=== PATIENT | female | born 1970 | race Caucasian/White ===

== ENCOUNTER 2016-04-18 10:37 | Emergency (ER) | payer SELFPAY ==
[2016-04-18] MEDS ORDERED: ONDANSETRON 4 MG TAB.RAPDIS PO ONE (10:44)
--- NOTE | 2016-04-18 10:49 | ER Document Report ---
ED Medical Screen (RME) - General Stated Complaint: WEAKNESS Time seen by provider: 10:43 Mode of Arrival: Ambulatory Information source: Patient - HPI Patient complains to provider of: VOMITING, DIARRHEA Onset: Yesterday Onset/Duration: Sudden Quality of pain: Cramping, Sharp Severity: Severe Pain Level: 5 Associated Symptoms: Abdominal pain, Chills, Diarrhea, Headache, Nausea, Vomiting Exacerbated by: Denies Relieved by: Denies Similar symptoms previously: No Recently seen / treated by doctor: No Notes: 04/18/16 10:47 PT IS AN ALCOHOLIC AND STARTED DRINKING AGAIN ABOUT 4 MONTHS AGO. LAST ALCOHOL WAS SUNDAY AND WAS EXCESSIVE. - Related Data Smoking: Cigarettes Frequency of alcohol use: Heavy Drug Abuse: None Allergies/Adverse Reactions: No Known Allergies Allergy (Verified 04/18/16 10:43) Past Medical History Past Surgical History: Reports: Hx Orthopedic Surgery - left knee, Hx Tubal Ligation - Immunizations Hx Diphtheria, Pertussis, Tetanus Vaccination: No - unknown Physical Exam - Vital signs Vitals: Temp Pulse Resp BP Pulse Ox 98.4 F 65 18 149/93 H 99 04/18/16 10:41 04/18/16 10:41 04/18/16 10:41 04/18/16 10:41 04/18/16 10:41 Course - Vital Signs Vital signs: Temp Pulse Resp BP Pulse Ox 98.4 F 65 18 149/93 H 99 04/18/16 10:41 04/18/16 10:41 04/18/16 10:41 04/18/16 10:41 04/18/16 10:41
[2016-04-18] MEDS: NORMAL SALINE 1000 ML 1,000 ML IV PRN ×2 (11:17→11:48)
--- NOTE | 2016-04-18 11:17 | ER Document Report ---
ED GI/ <RADHA JARVIS - Last Filed: 04/18/16 13:08> - General Time seen by provider: 11:12 Mode of Arrival: Ambulatory Information source: Patient TRAVEL OUTSIDE OF THE [place] IN LAST 30 DAYS: No - HPI Patient complains to provider of: Abdominal pain, Vomiting Onset: Other - sunday Timing/Duration: Persistent Quality of pain: Burning, Sharp Severity at maximum: Severe Severity in ED: Severe Pain Level: 5 Location: Other - upper abdominal Vaginal bleeding (Compared to normal period): None Associated symptoms: Nausea, Vomiting Exacerbated by: Supine, Sitting, Standing, Movement, Food Relieved by: Denies Similar symptoms previously: Yes Recently seen / treated by doctor: No <DANIAL HINTON - Last Filed: 04/18/16 20:20> - General Chief Complaint: Nausea/Vomiting/Diarrhea Stated Complaint: WEAKNESS Notes: 45-year-old female presents to ED for nausea vomiting and not able to keep any fluids down since Sunday. She states that she has been drinking off and on for since November almost daily and Sunday and Sunday between the 2 days she drank 40 50 mL bottles of Bacardi rum and now she cannot keep anything down. She states she's having severe upper abdomen pain since Sunday. (DANIAL HINTON) - Related Data Allergies/Adverse Reactions: No Known Allergies Allergy (Verified 04/18/16 10:43) Past Medical History - General Information source: Patient - Social History Smoking Status: Current Every Day Smoker Chew tobacco use (# tins/day): Yes Frequency of alcohol use: Heavy Drug Abuse: None Lives with: Family - Daughter Family History: Reviewed & Not Pertinent Patient has suicidal ideation: No - Past Medical History Cardiac Medical History: Reports: None Pulmonary Medical History: Reports: None EENT Medical History: Reports: None Neurological Medical History: Reports: Hx Migraine Endocrine Medical History: Reports: None Renal/ Medical History: Reports: None Malignancy Medical History: Reports: None GI Medical History: Reports: None Musculoskeltal Medical History: Reports Hx Musculoskeletal Deformity, Reports Hx Musculoskeletal Trauma Skin Medical History: Reports None Psychiatric Medical History: Reports: None Traumatic Medical History: Reports: None Infectious Medical History: Reports: None Past Surgical History: Reports: Hx Orthopedic Surgery - left knee, Hx Tubal Ligation - Immunizations Hx Diphtheria, Pertussis, Tetanus Vaccination: No - unknown <DANIAL HINTON - Last Filed: 04/18/16 20:20> Review of Systems - Review of Systems Constitutional: No symptoms reported EENT: No symptoms reported Cardiovascular: No symptoms reported Respiratory: No symptoms reported Gastrointestinal: Abdominal pain, Nausea, Vomiting Genitourinary: No symptoms reported Female Genitourinary: No symptoms reported Musculoskeletal: No symptoms reported Skin: No symptoms reported Hematologic/Lymphatic: No symptoms reported Neurological/Psychological: Anxiety -: Yes All other systems reviewed and negative <DANIAL HINTON - Last Filed: 04/18/16 20:20> Physical Exam - Vital signs Interpretation: Normal - General General appearance: Appears well, Alert - HEENT Head: Normocephalic, Atraumatic Eyes: Normal Pupils: PERRL - Respiratory Respiratory status: No respiratory distress Chest status: Nontender Breath sounds: Normal Chest palpation: Normal - Cardiovascular Rhythm: Regular Heart sounds: Normal auscultation Murmur: No - Abdominal Inspection: Normal Distension: No distension Bowel sounds: Normal Tenderness: Tender - Generalized abdominal pain worse to the upper abdomen Organomegaly: No organomegaly - Back Back: Normal, Nontender - Extremities General upper extremity: Normal inspection, Nontender, Normal color, Normal ROM , Normal temperature General lower extremity: Normal inspection, Nontender, Normal color, Normal ROM , Normal temperature, Normal weight bearing. No: Lacie's sign - Neurological Neuro grossly intact: Yes Cognition: Normal Orientation: AAOx4 [place] Coma Scale Eye Opening: Spontaneous [place] Coma Scale Verbal: Oriented [place] Coma Scale Motor: Obeys Commands [place] Coma Scale Total: 15 Speech: Normal Motor strength normal: LUE, RUE, LLE, RLE Sensory: Normal - Psychological Associated symptoms: Normal affect, Normal mood - Skin Skin Temperature: Warm Skin Moisture: Dry Skin Color: Normal <DANIAL HINTON - Last Filed: 04/18/16 20:20> - Vital signs Vitals: Temp Pulse Resp BP Pulse Ox 98.4 F 65 18 149/93 H 99 04/18/16 10:41 04/18/16 10:41 04/18/16 10:41 04/18/16 10:41 04/18/16 10:41 (RADHA JARVIS) (DANIAL HINTON) Course - Laboratory Result Diagrams: 04/18/16 11:43 04/18/16 11:43 <RADHA JARVIS - Last Filed: 04/18/16 13:08> - Laboratory Result Diagrams: 04/18/16 11:43 04/18/16 11:43 <DANIAL HINTON - Last Filed: 04/18/16 20:20> - Re-evaluation Re-evalutation: 04/18/16 13:08 Asked to see patient at the bedside with APC tachycardia. Patient is upset that she is not receiving Ativan. Her blood alcohol is 0 she is not hypertensive or tachycardic she is not into acute withdrawal. She is not actively vomiting at the bedside is well-appearing nontoxic. At this time she does not meet criteria for medical admission explained to her we're uncomfortable writing a prescription for Ativan given the fact that she will likely drink again in the combination of the 2 medications together could lead to detrimental overdose and respiratory depression. We offer her an opportunity to speak to the behavioral health people to help set up some outpatient referral service for drug and alcohol treatment. Patient does not have a ride in the next half hour therefore cannot give her a dose of Ativan here. We'll discharge follow-up as directed and discussed reasons for ED return sooner (RADHA JARVIS) - Vital Signs Vital signs: Temp Pulse Resp BP Pulse Ox 98.4 F 73 18 152/88 H 97 04/18/16 10:41 04/18/16 14:48 04/18/16 10:41 04/18/16 14:48 04/18/16 14:48 (RAHDA JARVIS) (DANIAL HINTON) - Laboratory Laboratory results interpreted by me: 04/18/16 04/18/16 04/18/16 11:43 11:43 13:40 MCV 102 H MCH 35.3 H RDW 16.0 H Potassium 3.2 L BUN 5 L Total Bilirubin 2.2 H AST 85 H Total Protein 6.2 L Amylase < 30 L Urine Protein 30 H Urine Ketones TRACE H (RADHA JARVIS) Discharge <RADHA JARVIS - Last Filed: 04/18/16 13:08> <DANIAL HINTON - Last Filed: 04/18/16 20:20> - Discharge Clinical Impression: Alcohol abuse, Upper abdominal pain Nausea and vomiting Qualifiers: Vomiting type: unspecified Vomiting Intractability: non-intractable Qualified Code(s): R11.2 - Nausea with vomiting, unspecified Condition: Stable Disposition: HOME, SELF-CARE Instructions: Family Physicians / Practices, Chronic Alcoholism ([facility]) Additional Instructions: ABDOMINAL PAIN: There are many causes of abdominal pain. Pain can mean a serious problem requiring surgery (such as appendicitis). It can also be an innocent problem that goes away on its own (such as a viral infection). Often, time must pass to determine the cause of pain. The physician does not feel that hospitalization is necessary, at present. Things may change within the next 24 hours. Call the doctor or come back for re- examination if any problems occur, such as: (1) Pain that becomes more severe, steady, or becomes concentrated in one specific area. Also, pain that is more severe with movement or coughing. (2) Vomiting that persists or becomes more frequent. (3) Blood in the vomitus, urine, or bowel movements. Blood in the stool may have a tarry or black appearance. (4) Shaking chills or fever greater than 100 degrees F. (5) The abdomen becomes more distended or swollen. (6) Bowel movements cease. (7) Failure to improve as expected. VOMITING: Vomiting (or nausea without vomiting) can be caused by many other different problems. It can mean that something's wrong with the stomach, such as ulcers or inflammation or the intestinal tract, such as appendicitis. But it can also be a symptom of a problem that has nothing to do with the stomach or intestines. Vomiting is common with severe headaches, earaches, tonsillitis, and kidney infections, etc. We see it with pneumonia or heart attacks. Drugs can cause nausea and vomiting. Many abdominal problems cause vomiting; for example, gallstones, kidney stones, pancreatitis, and intestinal obstruction ( blocked bowels). In most cases, curing the vomiting depends on fixing the problem that caused it. For temporary relief, we may use an anti-nausea medicine. For home use, we can prescribe suppositories, chewable pills, pills that dissolve in the mouth, or liquid anti-nausea drugs. If the vomiting seems to be caused by a problem in the stomach, acid-suppressing drugs may be prescribed as well. It's important to avoid dehydration. Sip small amounts of clear liquids ( soft drinks, tea, broth, etc) . Try to take fluids frequently even if you are vomiting to prevent dehydration. Take increasing amounts of fluid and when liquids are being consumed successfully, advance to small amounts of bland food (toast, soups, mashed potatoes, etc.) until you are able to resume a regular diet. Avoid aspirin, tobacco, and alcohol. If the vomiting worsens, if the problem that's making you vomit worsens, or if there's evidence of bleeding in the stomach (such as black, tarry stool, or bloody or black vomit), you should return immediately. Also, return if abdominal pain worsens or becomes localized to one area or you develop high fever. Call your doctor if you aren't improved in 24 hours. INTRAVENOUS (I V) FLUIDS: As part of your care today, you received intravenous (IV) fluids. IV fluids are administered to patients who are dehydrated or to those who have certain chemical (electrolyte) abnormalities that need correcting [place] MEDICATION: You have been given a medication to suppress nausea and vomiting. This type of medication can be given as a shot, pill, or suppository. It will usually last for many hours. Pills and shots usually last six to eight hours. For the typical illness, only one or two doses of the medication may be necessary. Mild lightheadedness may occur. This type of medicine can cause drowsiness. Do not drive or operate dangerous machinery while under its influence. Do not mix with alcohol. See your doctor at once if you have muscle spasms or tightness, or uncontrollable motions (particularly of the neck, mouth, or jaw). Persistent vomiting or severe lightheadedness should also be evaluated by the physician. Benzodiazepines please do not drink any alcohol at all to day You have been given a benzodiazepine medication. Examples of this type of medicine include Valium, Xanax, Librium, Ativan, and Halcion. Benzodiazepines have many uses. Medications of this type are used for insomnia, anxiety, muscle spasms, seizures, and drug and alcohol withdrawal. You may become very drowsy when you first take the medication. You should not drive or operate machinery while under its effects. Do not combine the medication with alcohol, or with any other medication without talking to your doctor. Do not take if without specific instruction from your inventory associate. Some benzodiazepines may have harmful interactions with oral antifungal medicines such as ketoconazole, itraconazole, and nefazodone. If you are taking an antifungal medicine, discuss this with your doctor before taking benzodiazepines. FOLLOW-UP CARE: If you have been referred to a physician for follow-up care, call the physician s office for an appointment as you were instructed or within the next two days. If you experience worsening or a significant change in your symptoms, notify the physician immediately or return to the Emergency Department at any time for re-evaluation. Forms: Elevated Blood Pressure, Smoking Cessation Education
[2016-04-18 11:53] LABS: ABSOLUTE MONOCYTES (AUTO) 0.4 10^3/uL (0.1-1.4); ABSOLUTE NEUT (AUTO) 3.4 10^3/uL (1.7-8.2); BASOPHILS % (AUTO) 0.6 % (0-2); EOSINOPHILS % (AUTO) 0.2 % (0-6); HEMATOCRIT 39.8 % (36.0-47.0); HEMOGLOBIN 13.8 g/dL (12.0-15.5); HGB HCT DIFFERENCE 1.6; LYMPHOCYTES % (AUTO) 19.9 % (13-45); MEAN CORPUSCULAR HEMOGLOBIN 35.3 pg (27.0-33.4); MEAN CORPUSCULAR HGB CONC 34.6 g/dL (32.0-36.0); MEAN CORPUSCULAR VOLUME 102 fl (80-97); MONOCYTES % (AUTO) 8.8 % (3-13); SEGMENTED NEUTROPHILS % (AUTO) 70.5 % (42-78); WHITE BLOOD COUNT 4.8 10^3/uL (4.0-10.5)
[2016-04-18 12:12] LABS: ALANINE AMINOTRANSFERASE 47 U/L (9-52); ALBUMIN 3.5 g/dL (3.5-5.0); ALKALINE PHOSPHATASE 94 U/L (38-126); ANION GAP 9 (5-19); ASPARTATE AMINO TRANSFERASE 85 U/L (14-36); BILIRUBIN,TOTAL 2.2 mg/dL (0.2-1.3); BLOOD UREA NITROGEN 5 mg/dL (7-20); CALCIUM 8.4 mg/dL (8.4-10.2); CARBON DIOXIDE 30 mmol/L (22-30); CHLORIDE 101 mmol/L (98-107); CREATININE RESULT 0.63 mg/dL (0.52-1.25); GLUCOSE 107 mg/dL (75-110); LIPASE 38.5 U/L (23-300); POTASSIUM 3.2 mmol/L (3.6-5.0); TOTAL PROTEIN 6.2 g/dL (6.3-8.2)
[2016-04-18 12:13] LABS: ALCOHOL < 10 mg/dL (NONE DETECTED); AMYLASE < 30 U/L (30-110)
[2016-04-18] MEDS ORDERED: ONDANSETRON HCL INJ/PF 4 MG/2 ML SDV IV ONE (13:09)
[2016-04-18 14:01] LABS: APPEARANCE,URINE SLIGHTLY-CLOUDY; BILIRUBIN,URINE NEGATIVE (NEGATIVE); GLUCOSE, URINE NEGATIVE (NEGATIVE); KETONES,URINE TRACE mg/dL (NEGATIVE); LEUKOCYTE ESTERASE,URINE NEGATIVE (NEGATIVE); NITRITE,URINE NEGATIVE (NEGATIVE); PROTEIN,URINE 30 mg/dL (NEGATIVE); UROBILINOGEN,URINE NEGATIVE mg/dL (<2.0)
[2016-04-18] MEDS ORDERED: LORAZEPAM 0.5 MG TABLET PO ONE (14:03)
[2016-04-18 14:18] LABS: URINE METHADONE SCREEN NEGATIVE; URINE OPIATES LOW NEGATIVE; URINE PHENCYCLIDINE SCREEN NEGATIVE
[2016-04-18 14:31] LABS: URINE BARBITURATES SCREEN NEGATIVE
[2016-04-18 14:49] VITALS: BP 152/88
--- NOTE | 2016-04-18 15:23 | PSYCHOLOGICAL NOTE ---
Psych Note - Psych Note Psych Note: Patient is a 45 year old female who presents via her adult daughter with c/o n/ v and alcohol withdrawal. Patient was referred for consultation to assist in providing patient resources. Patient states no one here is helping her, and reports when she was in [place] last year she went to the hospital and was admitted to ICU and received 100mg of Ativan per day. Patient states she remained sober after her discharged, but relapsed around 4 months ago. Patient cites familial stressors as the precipitating factors for her relapse. Patient states her daughter had a court date for child custody of her 3 year old grandson and her daughter was ordered to hand him over to his biological father after court. Patient states her daughter did not do this, and they have since been living place to place, essentially evading the law. Patient states the court would not provide her with an workers compensation attorney, so she was forced to pay a energy attorney to iron out details. Patient states they were forced to allow the child to go to [place] until August 06, which occurred this past Sunday. Patient states she immediately bought 10 airplane sized bottles of liquor for $5 and has been drinking since. She states she was physically ill yesterday due to not having any alcohol, and decided to seek assistance today. Patient continues to c/o not receiving adequate help, which he verbally identified to this clinician as Ativan. Discussed with patient the detox and SA treatment process in [place], which is largely voluntary. Patient states she only wants to go somewhere close. Patient advised of local outpatient providers who could possibly assist in identifying a bed, but also discussed that the closest facility is in [place]. Patient did deny any SI/HI, and further denies any prior history of suicidal ideations and or attempts. Patient reports multiple prior detox placements. Patient's daughter is bedside and reports she does not understand why the patient is not being admitted. Daughter reports the patient has been sick for days and days. Discussed with daughter and patient both that the patient has already reported she was vomiting x1 day, with only drinking Sunday. Patient is A&Ox3. Mood is irritable with labile affects. Patient denies suicidal/homicidal ideations, intent, plan, or means. Patient denies A/V H; delusions not noted. Thought processes were goal oriented towards what she perceived as help. Conversational speech was labile for rate, tone, and prosody. Intellectual abilities were estimated within average range. Attention and focus were fair. Insight, judgment, and impulse control were poor. Unspecified Alcohol Use Disorder Patient is psychiatrically cleared for discharge. Patient does not meet IVC criteria per the NCGS 122C as she denies SI/HI and is not experiencing psychosis which would otherwise restrict insight and decision making abilities. Patient was advised of the detox facility process. Patient provided the necessary resources to do so. I consulted with Dr. Huertas in regards to the care and management of this patient. ED provider is in agreement with disposition and recommendations.
--- NOTE | 2016-04-19 09:24 | EKG REPORT ---
SEVERITY:- NORMAL ECG - SINUS RHYTHM : Confirmed by: Jayde Saini 19-Apr-2016 09:23:54
== END 2016-04-18 14:48 | disposition home or self-care (01) ==
LOC: ER 10:37
DX: F10.10 Alcohol abuse, uncomplicated (principal); R11.2 Nausea with vomiting, unspecified; R10.84 Generalized abdominal pain; F17.200 Nicotine dependence, unspecified, uncomplicated; F41.9 Anxiety disorder, unspecified
CPT/HCPCS: 93005; 99284; 96361; 96374; 36415; 80307 ×2; 82150; 83690; 85025; 80053; 81001; 93010; S0119; J2405; J7030

== ENCOUNTER 2016-06-17 16:45 | Emergency (ER) | payer SELFPAY ==
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
[2016-06-17 18:45] LABS: ABSOLUTE LYMPHOCYTES (AUTO) 2.5 10^3/uL (0.5-4.7); ABSOLUTE MONOCYTES (AUTO) 0.4 10^3/uL (0.1-1.4); ABSOLUTE NEUT (AUTO) 4.1 10^3/uL (1.7-8.2); BASOPHILS % (AUTO) 0.5 % (0-2); EOSINOPHILS % (AUTO) 0.7 % (0-6); HEMATOCRIT 42.6 % (36.0-47.0); HEMOGLOBIN 14.6 g/dL (12.0-15.5); HGB HCT DIFFERENCE 1.2; LYMPHOCYTES % (AUTO) 35.7 % (13-45); MEAN CORPUSCULAR HGB CONC 34.3 g/dL (32.0-36.0); MEAN CORPUSCULAR VOLUME 99 fl (80-97); MONOCYTES % (AUTO) 5.3 % (3-13); RED BLOOD COUNT 4.29 10^6/uL (3.72-5.28); RED CELL DISTRIBUTION WIDTH 16.2 % (11.5-14.0); SEGMENTED NEUTROPHILS % (AUTO) 57.8 % (42-78)
[2016-06-17 19:07] LABS: ALANINE AMINOTRANSFERASE 48 U/L (9-52); ALBUMIN 4.4 g/dL (3.5-5.0); ALCOHOL 168 mg/dL (NONE DETECTED); ALKALINE PHOSPHATASE 111 U/L (38-126); ANION GAP 18 (5-19); ASPARTATE AMINO TRANSFERASE 39 U/L (14-36); BILIRUBIN,DIRECT 0.3 mg/dL (0.0-0.4); BILIRUBIN,TOTAL 0.6 mg/dL (0.2-1.3); BLOOD UREA NITROGEN 10 mg/dL (7-20); CALCIUM 9.4 mg/dL (8.4-10.2); CARBON DIOXIDE 25 mmol/L (22-30); CHLORIDE 104 mmol/L (98-107); CREATININE RESULT 0.71 mg/dL (0.52-1.25); GLUCOSE 103 mg/dL (75-110); POTASSIUM 4.5 mmol/L (3.6-5.0); SODIUM 147.1 mmol/L (137-145); TOTAL PROTEIN 7.2 g/dL (6.3-8.2)
[2016-06-17 19:27] LABS: AMORPHOUS SEDIMENT,URINE TRACE /HPF; APPEARANCE,URINE TURBID; BILIRUBIN,URINE NEGATIVE (NEGATIVE); GLUCOSE, URINE NEGATIVE (NEGATIVE); KETONES,URINE NEGATIVE (NEGATIVE); LEUKOCYTE ESTERASE,URINE SMALL (NEGATIVE); NITRITE,URINE NEGATIVE (NEGATIVE); PROTEIN,URINE 30 mg/dL (NEGATIVE); URINE SPECIFIC GRAVITY 1.029; UROBILINOGEN,URINE NEGATIVE mg/dL (<2.0)
[2016-06-17 19:36] LABS: URINE BARBITURATES SCREEN NEGATIVE; URINE METHADONE SCREEN NEGATIVE; URINE OPIATES LOW NEGATIVE; URINE PHENCYCLIDINE SCREEN NEGATIVE
[2016-06-17 20:09] VITALS: BP 125/81
== END 2016-06-17 20:27 | disposition home or self-care (01) ==
LOC: ER 16:45
DX: S80.01XA Contusion of right knee, initial encounter (principal); M25.561 Pain in right knee; X58.XXXA Exposure to other specified factors, initial encounter; F10.120 Alcohol abuse with intoxication, uncomplicated; Y90.6 Blood alcohol level of 120-199 mg/100 ml
CPT/HCPCS: 99284; 36415; 80307 ×2; 84703; 85025; 80053; 81001; 73564; L1830

== ENCOUNTER 2016-08-06 22:23 | Emergency (ER) | payer SELFPAY ==
[2016-08-07 01:56] VITALS: BP 147/96
== END 2016-08-07 00:02 | disposition left against medical advice (07) ==
LOC: ER 22:23
DX: Z53.21 Procedure and treatment not carried out due to patient leaving prior to being seen by health care provider (principal)

== ENCOUNTER 2016-08-19 01:13 | Emergency (ER) | payer OTHER ==
[2016-08-19] MEDS ORDERED: ACETAMINOPHEN 325 MG TABLET PO ONE (02:48)
[2016-08-19] MEDS ORDERED: HYDROCODONE/ACETAMINOPHEN 5-325 MG TABLET PO ONE ×2 (03:26→06:33)
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
[2016-08-19] MEDS ORDERED: IBUPROFEN 800 MG TABLET PO ONE (06:33)
[2016-08-19 07:42] VITALS: BP 118/73
== END 2016-08-19 07:43 | disposition home or self-care (01) ==
LOC: ER 01:13
DX: S92.101A Unspecified fracture of right talus, initial encounter for closed fracture (principal); M25.571 Pain in right ankle and joints of right foot; F17.200 Nicotine dependence, unspecified, uncomplicated; X58.XXXA Exposure to other specified factors, initial encounter
CPT/HCPCS: 99283

== ENCOUNTER 2016-09-11 14:26 | Emergency (ER) | payer SELFPAY ==
[2016-09-11 14:32] VITALS: BP 129/84
--- NOTE | 2016-09-11 16:56 | ER Document Report ---
ED Extremity Problem, Lower - General Chief Complaint: Foot Pain Stated Complaint: RIGHT FOOT INJURY Time Seen by Provider: 09/11/16 16:47 Mode of Arrival: Wheelchair Information source: Patient Notes: 46-year-old female presented to ED for a painful right foot. She says she broke her foot about 3 weeks ago and the foot has never felt better since then. She was supposed to go to orthopedics but could not afford orthopedics. She states her foot has been hurting since she was seen here 3 weeks ago. She states she has been trying to elevate ice and use her ibuprofen but has not had any relief. She states that her foot is been bruised and swollen since she was seen last time. She states that yesterday she tripped and she helped and heard a crack in her right foot again she states she was able to catch herself against a wall and did not fall but her pain is become worse. TRAVEL OUTSIDE OF THE [place] IN LAST 30 DAYS: No - HPI Patient complains to provider of: Pain, Swelling Location: Ankle, Foot Occurred: Other - 3 weeks worse since yesterday when she tripped Where: Home Onset/Duration: Gradual, Persistent Quality of pain: Sharp, Throbbing Severity: Severe Pain Level: 5 Context: Wearing shoes Recent injury: Yes Associated symptoms: [place] a crack, Painful ambulation Exacerbated by: Hanging down, Movement, Walking Relieved by: Elevation, Ice - Related Data Allergies/Adverse Reactions: No Known Allergies Allergy (Verified 09/11/16 14:32) Past Medical History - General Information source: Patient - Social History Smoking Status: Current Every Day Smoker Cigarette use (# per day): Yes - 1/2 ppd Chew tobacco use (# tins/day): No Smoking Education Provided: Yes - less than 2 min Frequency of alcohol use: Social Drug Abuse: None Lives with: Family Family History: Reviewed & Not Pertinent Patient has suicidal ideation: No Patient has homicidal ideation: No - Past Medical History Cardiac Medical History: Reports: None EENT Medical History: Reports: None Neurological Medical History: Reports: Hx Migraine Endocrine Medical History: Reports: None Renal/ Medical History: Reports: None Malignancy Medical History: Reports: None GI Medical History: Reports: None Musculoskeltal Medical History: Reports Hx Musculoskeletal Deformity, Reports Hx Musculoskeletal Trauma Skin Medical History: Reports None Psychiatric Medical History: Reports: Hx Anxiety Traumatic Medical History: Reports: Hx Fractures - right foot Infectious Medical History: Reports: None Past Surgical History: Reports: Hx Orthopedic Surgery - left knee, Hx Tubal Ligation - Immunizations Immunizations up to date: No Hx Diphtheria, Pertussis, Tetanus Vaccination: No - unknown Review of Systems - Review of Systems Constitutional: No symptoms reported EENT: No symptoms reported Cardiovascular: No symptoms reported Respiratory: No symptoms reported Gastrointestinal: No symptoms reported Genitourinary: No symptoms reported Female Genitourinary: No symptoms reported Musculoskeletal: Other - Right foot and ankle pain and swelling ecchymosis Skin: No symptoms reported Hematologic/Lymphatic: No symptoms reported Neurological/Psychological: No symptoms reported Physical Exam - Vital signs Vitals: Temp Pulse Resp BP Pulse Ox 98.0 F 98 20 129/84 H 99 09/11/16 14:32 09/11/16 14:32 09/11/16 14:32 09/11/16 14:32 09/11/16 14:32 Interpretation: Normal - General General appearance: Appears well, Alert - HEENT Head: Normocephalic, Atraumatic Eyes: Normal Pupils: PERRL - Respiratory Respiratory status: No respiratory distress Chest status: Nontender Breath sounds: Normal Chest palpation: Normal - Cardiovascular Rhythm: Regular Heart sounds: Normal auscultation Murmur: No - Abdominal Inspection: Normal Distension: No distension Bowel sounds: Normal Tenderness: Nontender Organomegaly: No organomegaly - Back Back: Normal, Nontender - Extremities General upper extremity: Normal inspection, Nontender, Normal color, Normal ROM , Normal temperature General lower extremity: Normal temperature Ankle: Tender, Ecchymosis, Edema, Limited ROM. No: Abrasion, Deformity, Instability, Laceration, Unable to bear weight - painful ambulation Foot: Tender, Ecchymosis, Edema, Metatarsal compress. pain, No evidence of FB. No: Abrasion, Deformity, Instability, Laceration, Nail injury, Navicular tenderness, Puncture wound, Unable to bear weight - painfull ambulation - Neurological Neuro grossly intact: Yes Cognition: Normal Orientation: AAOx4 [place] Coma Scale Eye Opening: Spontaneous [place] Coma Scale Verbal: Oriented [place] Coma Scale Motor: Obeys Commands [place] Coma Scale Total: 15 Speech: Normal Motor strength normal: LUE, RUE, LLE, RLE Sensory: Normal - Psychological Associated symptoms: Normal affect, Normal mood - Skin Skin Temperature: Warm Skin Moisture: Dry Skin Color: Normal, Ecchymosis - right foot and ankle Location of irregularity: Extremities - right foot and ankle Irregularity with: Swelling, Tenderness Course - Re-evaluation Re-evalutation: 09/11/16 20:58 Discussed x-rays and labs with patient and written reports of x-ray and labs given to patient for follow-up. Patient given a list of local primary doctors. She was also given the name and number of a local orthopedic doctor for follow -up. She stated she did not have the money to follow-up with orthopedic. Explained the patient the risk of not following up with the injuries to her foot. Patient given instructions on elevation and ice. Patient given a CD of her x-rays. Patient was discharged home with prescription for Percocet and potassium. 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 There is mild foot swelling and bruising to the right foot. Your ankle x-ray was negative. HYPOKALEMIA: You have an abnormally decreased level of serum potassium. Hypokalemia may cause weakness, fatigue, or heart rhythm abnormalities. Sometimes there are no symptoms at all. Usually, low serum potassium is due to taking diuretics ( water pills). It can also be due to excessive vomiting or diarrhea. If no obvious cause is evident, further evaluation will be necessary. Treatment is usually oral potassium supplements. Take these exactly as prescribed. You may also want to select foods which are naturally high in potassium -- fruits (such as bananas, cantaloupe, grapes, oranges, prunes, tomatoes), fresh vegetables (potatoes, spinach, beans, peas), orange or tomato juice, tomato pasta sauce, milk, fish (halibut, tuna, salmon, christina) A follow-up blood test is usually performed to assure that the potassium is returning to normal. Call the physician if you suffer severe weakness, muscle twitching or cramping, palpitations (pounding or irregular heartbeat), or any other new or alarming symptoms. POTASSIUM: A potassium-containing medication has been prescribed. This is usually used to treat potassium depletion caused by diuretics or by vomiting and diarrhea. This type of medicine is available in many forms, including elixirs, powders, fruity drinks, and pills. If one type is not working out for you, another can be substituted. Potassium can cause stomach upset. This can be prevented by taking it with meals. Do not take more than your doctor recommends. Notify your doctor if you develop repeated vomiting, black or bloody stool , severe weakness or numbness. FOODS HIGH IN POTASSIUM: baked potato with skin 1080 mg tomato pasta sauce, 1 cup 940 sweet potato with skin 690 orange juice, 1 cup 480 northern irish chard 480 tuna, 3 oz 480 cantaloupe, 1 cup 430 banana 420 spinach 420 yogurt, plain, nofat, 6 oz 400 milk, 1 cup 370 watermelon, 2 cups 340 tomato, 1/2 cup 210 Other foods high in potassium are most other fruits and vegetables and fish. SPLINT PRECAUTIONS: A splint has been placed. This will protect the area while healing begins. Your problem does NOT normally require a cast. It MUST, however, be held still! Keep the splint on ALL THE TIME until instructed to remove it by the doctor. As you begin to use the area, be careful. You shouldn't do anything which causes discomfort -- you may disturb the injury even with the splint in place. After the initial period of rest and elevation, if splint does not prevent pain when you move, come back. You may require placement of a different splint , or a cast. If there is unexpected severe pain, or numbness, discoloration, or swelling beyond the splint, you should return at once. If you feel that the splint has broken or become loose, come back. ICE & ELEVATION: Apply ice packs frequently against the painful area. Many different schedules are recommended, such as "20 minutes on, 20 minutes off" or "one hour ice, two hours rest." If you need to work, you may need to go longer between ice treatments. You should plan to have the area ice packed AT LEAST one- fourth of the time. The ice should be applied over the wrap, tape, or splint, or over a layer of cloth -- not directly against the skin. Some ice bags have a built-in cloth and can be put directly on the skin. Your injured part should be elevated as much as possible over the next 48 hours. Try to keep the injury above the level of the heart. Avoid use of the injured area. Elevation and rest will decrease the swelling. ORAL NARCOTIC MEDICATION: You have been given a prescription for pain control. This medication is a narcotic. It's best taken with food, as nausea can result if taken on an empty stomach. Don't operate machinery or drive within six hours of taking this medication. Do not combine this medicine with alcohol, or with any medication which can cause sedation (such as cold tablets or sleeping pills) unless you get permission from the physician. Narcotics tend to cause constipation. If possible, drink plenty of fluids and eat a diet high in fiber and fruits. Please be aware that prescription narcotics also have the potential for abuse. People become addicted to these medications because of the general sense of wellbeing that they induce. This feeling along with a significant reduction in tension, anxiety, and aggression provides a stimulating seductive quality to these drugs. Once your pain is under control, we encourage you to discard your unused narcotics. FOLLOW-UP CARE: If you have been referred to a physician for follow-up care, call the physician s office for an appointment as you were instructed or within the next two days. If you experience worsening or a significant change in your symptoms, notify the physician immediately or return to the Emergency Department at any time for re-evaluation. Prescriptions: Potassium Bicarbonate/Cit AC [Potassium 25 Meq Tab Eff] 25 meq PO DAILY #7 tablet.eff Forms: Elevated Blood Pressure, Smoking Cessation Education Referrals: KIT HENRY DO [ACTIVE STAFF] - Follow up as needed
--- NOTE | 2016-09-11 17:18 | RADIOLOGY REPORT (SQ) ---
EXAM DESCRIPTION: FOOT RIGHT COMPLETE COMPLETED DATE/TIME: 09/11/2016 5:02 pm REASON FOR STUDY: pain and reinjury COMPARISON: 11/13/2010 NUMBER OF VIEWS: Three views. TECHNIQUE: AP, lateral and oblique radiographic images acquired of the right foot. LIMITATIONS: None. FINDINGS: MINERALIZATION: Normal. BONES: Osteonecrosis of the 2nd metatarsal head, with fragmentation of the articular surface and flat tening of the articular surface. This is best shown on the AP and oblique views, marked with a circl e. Remainder of the bones of the right foot are otherwise unremarkable. JOINTS: No significant joint space narrowing or bony spurring. SOFT TISSUES: Mild forefoot soft tissue swelling. No foreign body. OTHER: No other significant finding. IMPRESSION: Osteonecrosis of the 2nd metatarsal head TECHNICAL DOCUMENTATION: JOB ID: [id number] [employer]- All Rights Reserved
[2016-09-11] MEDS ORDERED: OXYCODONE-ACETAMINOPHEN 5-325 MG TABLET PO ONE ×2 (18:07→20:56)
--- NOTE | 2016-09-11 18:46 | RADIOLOGY REPORT (SQ) ---
EXAM DESCRIPTION: ANKLE RIGHT COMPLETE COMPLETED DATE/TIME: 09/11/2016 6:32 pm REASON FOR STUDY: states her ankle is lower leg are also hurting COMPARISON: 08/19/2016. NUMBER OF VIEWS: Three views. TECHNIQUE: AP, lateral, and oblique radiographic images acquired of the right ankle. LIMITATIONS: None. FINDINGS: MINERALIZATION: Normal. BONES: Stable talar injuries with minimally displaced fracture of the medial talus and nondisplaced f racture laterally. No acute fracture or dislocation. No worrisome bone lesions. JOINTS: No effusions. SOFT TISSUES: No soft tissue swelling. No foreign body. OTHER: No other significant finding. IMPRESSION: STABLE FINDINGS OF PRIOR TRAUMA. NO ACUTE FINDINGS. TECHNICAL DOCUMENTATION: JOB ID: [id number] [employer]- All Rights Reserved
[2016-09-11 20:20] LABS: ABSOLUTE BASOPHILS # (AUTO) 0.1 10^3/uL (0.0-0.2); ABSOLUTE EOSINOPHILS # (AUTO) 0.1 10^3/uL (0.0-0.6); ABSOLUTE LYMPHOCYTES (AUTO) 1.7 10^3/uL (0.5-4.7); ABSOLUTE MONOCYTES (AUTO) 0.4 10^3/uL (0.1-1.4); ABSOLUTE NEUT (AUTO) 3.7 10^3/uL (1.7-8.2); BASOPHILS % (AUTO) 0.9 % (0-2); EOSINOPHILS % (AUTO) 0.8 % (0-6); HEMATOCRIT 41.9 % (36.0-47.0); HEMOGLOBIN 13.9 g/dL (12.0-15.5); HGB HCT DIFFERENCE -0.2; MEAN CORPUSCULAR HEMOGLOBIN 33.5 pg (27.0-33.4); MEAN CORPUSCULAR VOLUME 101 fl (80-97); MONOCYTES % (AUTO) 7.2 % (3-13); RED BLOOD COUNT 4.14 10^6/uL (3.72-5.28); RED CELL DISTRIBUTION WIDTH 19.6 % (11.5-14.0); SEGMENTED NEUTROPHILS % (AUTO) 63.1 % (42-78); WHITE BLOOD COUNT 5.9 10^3/uL (4.0-10.5)
[2016-09-11 20:37] LABS: ALANINE AMINOTRANSFERASE 63 U/L (9-52); ALBUMIN 3.5 g/dL (3.5-5.0); ALKALINE PHOSPHATASE 118 U/L (38-126); ANION GAP 9 (5-19); ASPARTATE AMINO TRANSFERASE 107 U/L (14-36); BILIRUBIN,DIRECT 0.3 mg/dL (0.0-0.4); BILIRUBIN,TOTAL 1.2 mg/dL (0.2-1.3); BLOOD UREA NITROGEN 7 mg/dL (7-20); CALCIUM 8.7 mg/dL (8.4-10.2); CARBON DIOXIDE 35 mmol/L (22-30); CHLORIDE 95 mmol/L (98-107); CREATININE RESULT 0.61 mg/dL (0.52-1.25); GLUCOSE 93 mg/dL (75-110); SODIUM 139.2 mmol/L (137-145); TOTAL PROTEIN 6.4 g/dL (6.3-8.2)
[2016-09-11 20:49] LABS: ALCOHOL < 10 mg/dL (NONE DETECTED)
[2016-09-11 20:50] LABS: POTASSIUM 2.5 mmol/L (3.6-5.0)
[2016-09-11] MEDS ORDERED: POTASSIUM CHLORIDE 10 MEQ TABLET.SA PO ONE (20:57)
== END 2016-09-11 22:48 | disposition home or self-care (01) ==
LOC: ER 14:26
PROC: 2W3QX1Z Immobilization of Right Lower Leg using Splint (ICD-10-PCS; principal; 2016-09-11)
DX: M92.71 Juvenile osteochondrosis of metatarsus, right foot (principal); E87.6 Hypokalemia; S92.144A Nondisplaced dome fracture of right talus, initial encounter for closed fracture; S92.191A Other fracture of right talus, initial encounter for closed fracture; X58.XXXA Exposure to other specified factors, initial encounter; M79.671 Pain in right foot; M25.571 Pain in right ankle and joints of right foot; F17.210 Nicotine dependence, cigarettes, uncomplicated; Z71.6 Tobacco abuse counseling; Z59.9 Problem related to housing and economic circumstances, unspecified
CPT/HCPCS: 36415; 80053; 80307; 85025; 99283